=== PATIENT | female | born 1980 ===

== ENCOUNTER 2017-02-24 00:03 | Emergency (ER) | payer SELFPAY ==
[~2017-02-24] VITALS: Ht 160 cm; Wt 113.3 kg
[2017-02-24 00:08] VITALS: Ht 160 cm; Wt 113.3 kg
== END 2017-02-24 02:39 | disposition left against medical advice (07) ==
LOC: FTE 00:03
DX: Z53.21 Procedure and treatment not carried out due to patient leaving prior to being seen by health care provider (principal)